=== PATIENT | female | born 1955 | race Caucasian/White ===

== ENCOUNTER 2019-01-05 13:12 | Emergency (ER) | payer BC ==
[2019-01-05] MEDS: LIDOCAINE 1% (MPF) 30 ML INJ INJ (14:04)
== END 2019-01-05 15:22 | disposition home or self-care (01) ==
LOC: FTE 13:12
DX: L03.032 Cellulitis of left toe (principal); S91.202A Unspecified open wound of left great toe with damage to nail, initial encounter; I50.9 Heart failure, unspecified; X58.XXXA Exposure to other specified factors, initial encounter; Y92.9 Unspecified place or not applicable
CPT/HCPCS: 11765; 99283-25

== ENCOUNTER 2019-04-04 11:07 | Emergency (ER) | payer BC | END 2019-04-04 13:53 | disposition home or self-care (01) | LOC: FTE 11:07 | DX: S31.103A Unspecified open wound of abdominal wall, right lower quadrant without penetration into peritoneal cavity, initial encounter (principal); I50.9 Heart failure, unspecified; X58.XXXA Exposure to other specified factors, initial encounter; Y92.9 Unspecified place or not applicable | CPT/HCPCS: 99283 ==